=== PATIENT | male | born 1940 | race Caucasian/White ===

== ENCOUNTER 2017-12-04 11:43 | Day surgery (SDC) | payer MEDICARE ==
[~2017-12-04] VITALS: Ht 177.8 cm; Wt 94.9 kg
[~2017-12-04 11:43] MED LIST: AMLO10TA2 PO; ASPI-496 PO; ATOR40TA78 PO; CARV6.252 PO; CLOP75TA PO; FOLI-17 PO; PANT40TA5 PO; THIA100T10 PO; VALS320T2 PO
[2017-12-04 12:40] VITALS: BP 179/79
[2017-12-04] MEDS ORDERED: SODIUM CHLORIDE 0.9% 1,000 ML IV SCH (13:00)
== END 2017-12-04 15:00 ==
LOC: OUT 11:43
PROVIDERS: ATTEND Physician Assistant Surgical
DX: M51.16 Intervertebral disc disorders with radiculopathy, lumbar region (principal); M48.061 Spinal stenosis, lumbar region without neurogenic claudication; M43.16 Spondylolisthesis, lumbar region
CPT/HCPCS: 62284; 72110; 72132; J7030; Q9965

== ENCOUNTER → 2018-03-03 | Outpatient (CLI) | payer MEDICARE | END | disposition home or self-care (01) | LOC: CVU 11:44 | PROVIDERS: ATTEND Internal Medicine Cardiovascular Disease | DX: I08.0 Rheumatic disorders of both mitral and aortic valves (principal); E78.5 Hyperlipidemia, unspecified; I11.0 Hypertensive heart disease with heart failure; I50.9 Heart failure, unspecified; I25.10 Atherosclerotic heart disease of native coronary artery without angina pectoris; Z87.891 Personal history of nicotine dependence; Z95.0 Presence of cardiac pacemaker; Z95.1 Presence of aortocoronary bypass graft | CPT/HCPCS: 0399T; 93306 ==

== ENCOUNTER 2018-03-17 11:57 | Day surgery (SDC) | payer MEDICARE ==
[~2018-03-17] VITALS: Ht 177.8 cm; Wt 94.5 kg
[~2018-03-17 11:57] MED LIST changes: +LORA10TA62 PO; +RANI300C PO; +SACU1TAB4 PO; +VIT C; +VIT D; +VIT E
[2018-03-17] MEDS ORDERED: SODIUM CHLORIDE 0.9% 1,000 ML IV ONE (13:01)
[2018-03-17 13:11] VITALS: BP 144/74
[2018-03-17] MEDS ORDERED: THIA500T PO (13:19)
[2018-03-17] MEDS ORDERED: ASCO10004 PO (13:21)
[2018-03-17] MEDS ORDERED: NIAC500T85 PO (13:21)
[2018-03-17] MEDS ORDERED: CHOL500045 PO (13:21)
[2018-03-17] MEDS ORDERED: VITA400C9 PO (13:22)
[2018-03-17] MEDS ORDERED: DIPHENHYDRAMINE 50 MG/ML, 1ML IVPush ONE (13:30)
[2018-03-17] MEDS ORDERED: MIDAZOLAM 1 MG/ML, 5ML ONE (13:46)
[2018-03-17] MEDS ORDERED: BIVALIRUDIN 250 MG ONE (13:46)
[2018-03-17] MEDS ORDERED: VERAPAMIL 2.5 MG/ML, 2ML ONE (13:46)
[2018-03-17] MEDS ORDERED: FENTANYL PF 100 MCG/2ML ONE (13:46)
[2018-03-17] MEDS ORDERED: HEPARIN 1,000 UNITS/ML, 10ML ONE (13:46)
[2018-03-17] MEDS ORDERED: TICAGRELOR 90 MG TABLET ONE ×2 (13:46→13:48)
[2018-03-17] MEDS ORDERED: LIDOCAINE 2%, 2ML ONE (13:48)
[2018-03-17] MEDS ORDERED: LIDOCAINE/PF 1%, 30ML ONE (14:00)
[2018-03-17] MEDS ORDERED: SODIUM CHLORIDE 0.9% 1,000 ML IV SCH (15:02)
== END 2018-03-17 21:12 | disposition home or self-care (01) ==
LOC: CACL 11:57 → 5SO 17:29 → CACL 21:12
PROVIDERS: ATTEND Internal Medicine Cardiovascular Disease
DX: I25.10 Atherosclerotic heart disease of native coronary artery without angina pectoris (principal); I25.82 Chronic total occlusion of coronary artery; I11.0 Hypertensive heart disease with heart failure; I50.9 Heart failure, unspecified; F10.10 Alcohol abuse, uncomplicated; E78.2 Mixed hyperlipidemia; Z79.82 Long term (current) use of aspirin; Z79.899 Other long term (current) drug therapy; Z79.02 Long term (current) use of antithrombotics/antiplatelets; Z85.46 Personal history of malignant neoplasm of prostate; Z87.891 Personal history of nicotine dependence; Z95.1 Presence of aortocoronary bypass graft; Z95.5 Presence of coronary angioplasty implant and graft; Z95.4 Presence of other heart-valve replacement; Z82.49 Family history of ischemic heart disease and other diseases of the circulatory system
CPT/HCPCS: 75625; 93457; 99156; 99157; C1760; C1769; C1894; J2250; J3010; J3490; Q9967; J0583; J1644

== ENCOUNTER → 2018-04-13 | Outpatient (CLI) | payer MEDICARE ==
[~2018-04-13] MED LIST changes: +ASCO10004 PO; +CHOL500045 PO; +NIAC500T85 PO; +THIA500T PO; +VITA400C9 PO
== END | disposition home or self-care (01) ==
LOC: RAD 10:31
PROVIDERS: ATTEND Internal Medicine Cardiovascular Disease
DX: I77.810 Thoracic aortic ectasia (principal); J84.10 Pulmonary fibrosis, unspecified; R91.8 Other nonspecific abnormal finding of lung field; K57.30 Diverticulosis of large intestine without perforation or abscess without bleeding; I70.8 Atherosclerosis of other arteries; I65.23 Occlusion and stenosis of bilateral carotid arteries
CPT/HCPCS: 71275; 74174; 93880; 94060; 94726; 94729

== ENCOUNTER → 2018-06-22 | Outpatient (CLI) | payer MEDICARE ==
[~2018-06-22] MED LIST changes: -AMLO10TA2 PO; +AMLO10TA6 PO
== END | disposition home or self-care (01) ==
LOC: CVU 08:25
PROVIDERS: ATTEND Internal Medicine Cardiovascular Disease
DX: I34.0 Nonrheumatic mitral (valve) insufficiency (principal); I25.810 Atherosclerosis of coronary artery bypass graft(s) without angina pectoris; I10 Essential (primary) hypertension; E78.5 Hyperlipidemia, unspecified; Z87.891 Personal history of nicotine dependence; Z86.79 Personal history of other diseases of the circulatory system
CPT/HCPCS: 0399T; 93306

== ENCOUNTER 2018-11-21 08:36 | Inpatient (IN) | payer MEDICARE ==
[~2018-11-21] VITALS: Ht 177.8 cm; Wt 97.0 kg
[~2018-11-21 08:36] MED LIST changes: -AMLO10TA6 PO; +AMLO10TA8 PO
--- NOTE | 2018-11-21 08:55 | NUR ---
3 days diffuse upper CP radiating into throat/jaw. Took ntg x3 w/ relief [employer]. Currently denies any CP or SOB. Pt has pacemaker 2010 & aortic valve replacement 2016. EKG done upon arrival, cardiac, NIBP & SPO2 monitors in place. Pt alert, [facility].
[2018-11-21] MEDS ORDERED: SODIUM CHLORIDE FLUSH 10ML SYR IVF ONE (09:30)
[2018-11-21 09:53] LABS: BASOPHILS # (AUTO) 0.03 x10^3/uL (0-0.1); BASOPHILS % (AUTO) 1 % (0-1); EOSINOPHILS # (AUTO) 0.11 x10^3/uL (0-0.4); EOSINOPHILS % (AUTO) 2 % (1-7); LYMPHOCYTES # (AUTO) 1.42 x10^3/uL (1-3.4); LYMPHOCYTES % (AUTO) 25 % (22-44); MD NO; MEAN CORPUSCULAR HEMOGLOBIN 32.6 pg (27.5-34.5); MEAN CORPUSCULAR HGB CONC 34.4 g/dL (33.2-36.2); MEAN CORPUSCULAR VOLUME 94.8 fL (81-97); MEAN PLATELET VOLUME 8.2 fL (7.4-10.4); MONOCYTES % (AUTO) 19 % (2-9); NEUTROPHILS # (AUTO) 3.03 x10^3/uL (1.8-6.8); NEUTROPHILS % (AUTO) 53 % (42-75); PLATELET COUNT 155 x10^3/uL (130-400); RED BLOOD COUNT 4.57 x10^6/uL (4.38-5.82); RED CELL DISTRIBUTION WIDTH 13.1 % (9.4-14.8)
--- NOTE | 2018-11-21 10:03 | NUR ---
report from sandra serrato. pt resting in room watching tv. no needs at this time. connected to all montiors. vss. call light within reach. awaiting lab results.
[2018-11-21 10:06] LABS: ALANINE AMINOTRANSFERASE 26 U/L (12-78); ANION GAP 7 mmol/L (5-15); CHLORIDE 101 mmol/L (98-107); CREATININE 0.93 mg/dL (0.7-1.3)
[2018-11-21 10:10] LABS: ALKALINE PHOSPHATASE 71 U/L (45-117); BILIRUBIN,TOTAL 1.2 mg/dL (0.2-1.0); TOTAL PROTEIN 7.2 g/dL (6.4-8.2)
[2018-11-21 10:17] LABS: TROPONIN I 0.412 ng/mL (0.000-0.045)
[2018-11-21] MEDS ORDERED: SODIUM CHLORIDE FLUSH 10ML SYR IVF PRN (11:00)
--- NOTE | 2018-11-21 11:05 | NUR ---
pt up to rr with steady gait. awaiting room assignment at this time. no other needs. vss. call light within reach.
[2018-11-21] MEDS ORDERED: HEPARIN 5,000 UNITS/ML, 1ML IV ONE ×2 (12:00→13:00)
[2018-11-21] MEDS ORDERED: HEPARIN 25,000 UNITS/500ML PMX 500 ML IV PRN (12:00)
[2018-11-21] MEDS ORDERED: HEPARIN 5,000 UNITS/ML, 1ML IV PRN (12:00)
[2018-11-21 12:25] VITALS: BP 132/76
[2018-11-21] MEDS ORDERED: LABETALOL 5MG/ML, 20ML IVPush PRN (12:30)
[2018-11-21] MEDS ORDERED: ACETAMINOPHEN 325 MG TABLET PO PRN (12:30)
[2018-11-21] MEDS ORDERED: morphine SULFATE 10 MG/ML, 1ML IVPush PRN (12:30)
[2018-11-21] MEDS ORDERED: NITROGLYCERIN 0.4 MG BOTTLE (25 TABS) SL PRN (12:30)
[2018-11-21] MEDS: ATORVASTATIN 40 MG TABLET PO SCH (12:30)
[2018-11-21] MEDS ORDERED: ASPIRIN 81 MG TABLET CHEW PO SCH (12:30)
[2018-11-21 12:51] VITALS: BP 132/76
[2018-11-21 13:15] LABS: INTERNATIONAL NORMALIZED RATIO 1.03 (0.93-1.1); PROTHROMBIN TIME 10.8 Seconds (9.6-11.5)
[2018-11-21] MEDS: HEPARIN 25,000 UNITS/500ML PMX 500 ML IV PRN (13:55)
[2018-11-21 15:30] LABS: TROPONIN I 0.425 ng/mL (0.000-0.045)
[2018-11-21] MEDS: NITROGLYCERIN 0.1 MG/HR PATCH TD SCH (16:07)
[2018-11-21 19:45] VITALS: BP 138/69
[2018-11-21 20:37] LABS: TROPONIN I 0.464 ng/mL (0.000-0.045)
[2018-11-21] MEDS: PANTOPROZOLE 40MG TABLET PO SCH (20:49)
[2018-11-21] MEDS: HEPARIN 5,000 UNITS/ML, 1ML IV PRN (20:50)
[2018-11-21] MEDS: CARVEDILOL 25 MG TABLET PO SCH (20:50)
[2018-11-22 02:00] VITALS: BP 117/66
[2018-11-22 02:53] LABS: BASOPHILS # (AUTO) 0.03 x10^3/uL (0-0.1); BASOPHILS % (AUTO) 0 % (0-1); EOSINOPHILS # (AUTO) 0.17 x10^3/uL (0-0.4); EOSINOPHILS % (AUTO) 3 % (1-7); LYMPHOCYTES # (AUTO) 1.98 x10^3/uL (1-3.4); LYMPHOCYTES % (AUTO) 28 % (22-44); MD NO; MEAN CORPUSCULAR HEMOGLOBIN 32.4 pg (27.5-34.5); MEAN CORPUSCULAR HGB CONC 34.2 g/dL (33.2-36.2); MEAN CORPUSCULAR VOLUME 94.8 fL (81-97); MEAN PLATELET VOLUME 7.8 fL (7.4-10.4); MONOCYTES # (AUTO) 1.37 x10^3/uL (0.2-0.8); MONOCYTES % (AUTO) 20 % (2-9); NEUTROPHILS # (AUTO) 3.44 x10^3/uL (1.8-6.8); NEUTROPHILS % (AUTO) 49 % (42-75); PLATELET COUNT 148 x10^3/uL (130-400); RED BLOOD COUNT 4.42 x10^6/uL (4.38-5.82); RED CELL DISTRIBUTION WIDTH 13.6 % (9.4-14.8)
[2018-11-22 02:59] LABS: ALBUMIN 3.9 g/dL (3.4-5.0); ANION GAP 7 mmol/L (5-15); CALCIUM 8.7 mg/dL (8.5-10.1); CHLORIDE 104 mmol/L (98-107)
[2018-11-22 03:04] LABS: ALANINE AMINOTRANSFERASE 26 U/L (12-78); CREATININE 0.97 mg/dL (0.7-1.3); TOTAL PROTEIN 6.7 g/dL (6.4-8.2); TROPONIN I 0.423 ng/mL (0.000-0.045)
[2018-11-22 03:05] LABS: ALKALINE PHOSPHATASE 65 U/L (45-117)
[2018-11-22] MEDS: HEPARIN 5,000 UNITS/ML, 1ML IV PRN (04:20)
[2018-11-22] MEDS ORDERED: ASPIRIN 325 MG TABLET EC PO SCH (06:00)
[2018-11-22 07:17] VITALS: BP 128/68
[2018-11-22] MEDS: FAMOTIDINE 20 MG TABLET PO SCH (09:29)
[2018-11-22] MEDS: FOLIC ACID 1 MG TABLET PO SCH (09:29)
[2018-11-22] MEDS: ASCORBIC ACID 500 MG TABLET PO SCH (09:29)
[2018-11-22] MEDS: NIACIN 500 MG TABLET.ER PO SCH (09:30)
[2018-11-22] MEDS: PANTOPROZOLE 40MG TABLET PO SCH ×2 (09:30→20:43)
[2018-11-22] MEDS: CLOPIDOGREL 75 MG TABLET PO SCH (09:30)
[2018-11-22] MEDS: CHOLECALCIFEROL 5,000u TAB PO SCH (09:30)
[2018-11-22] MEDS: AMLODIPINE 10 MG TAB PO SCH (09:30)
[2018-11-22] MEDS: CARVEDILOL 25 MG TABLET PO SCH ×2 (09:30→20:43)
[2018-11-22] MEDS ORDERED: SODIUM CHLORIDE 0.9% 1,000 ML IV SCH (11:00)
[2018-11-22 12:53] VITALS: BP 136/72
[2018-11-22] MEDS: HEPARIN 25,000 UNITS/500ML PMX 500 ML IV PRN (14:26)
[2018-11-22] MEDS ORDERED: MIDAZOLAM 1 MG/ML, 2ML ONE (15:20)
[2018-11-22] MEDS ORDERED: BIVALIRUDIN 250 MG ONE (15:21)
[2018-11-22] MEDS ORDERED: FENTANYL PF 100 MCG/2ML ONE (15:21)
[2018-11-22] MEDS ORDERED: LIDOCAINE 1%, 20ML ONE (15:21)
[2018-11-22] MEDS: NITROGLYCERIN 0.1 MG/HR PATCH TD SCH (16:21)
[2018-11-22] MEDS: SODIUM CHLORIDE 0.9% 1,000 ML IV SCH (17:32)
[2018-11-22 19:31] VITALS: BP 112/61
[2018-11-22] MEDS: ATORVASTATIN 40 MG TABLET PO SCH (20:43)
[2018-11-23 00:57] VITALS: BP 126/58
[2018-11-23] MEDS: SODIUM CHLORIDE 0.9% 1,000 ML IV SCH ×2 (01:16→09:22)
[2018-11-23 05:01] LABS: ANION GAP 5 mmol/L (5-15); CALCIUM 8.4 mg/dL (8.5-10.1); CHLORIDE 108 mmol/L (98-107); CREATININE 0.95 mg/dL (0.7-1.3)
[2018-11-23 05:02] LABS: CHOLESTEROL, TOTAL 118 mg/dL (140-239); TRIGLYCERIDES 99 mg/dL (50-200); VLDL CHOLESTEROL 20 mg/dL (0-25)
[2018-11-23 05:03] LABS: CHOL/HDL RATIO 3.4; HDL CHOL % 30 % (26-37); HDL CHOLESTEROL (DIRECT) 35 mg/dL (40-60); LDL CHOLESTEROL,CALCULATED 63 mg/dL (54-169); LDL/HDL RATIO 1.8 (0.5-3.0)
[2018-11-23 05:11] LABS: HEMOGLOBIN A1C 5.4 % (4.2-6.3)
[2018-11-23 07:19] VITALS: BP 136/65
[2018-11-23] MEDS ORDERED: CLOPIDOGREL 75 MG TABLET PO SCH (09:00)
[2018-11-23] MEDS ORDERED: ASPIRIN 81 MG TABLET EC PO SCH (09:00)
[2018-11-23] MEDS: CHOLECALCIFEROL 5,000u TAB PO SCH (09:20)
[2018-11-23] MEDS: ASCORBIC ACID 500 MG TABLET PO SCH (09:20)
[2018-11-23] MEDS: PANTOPROZOLE 40MG TABLET PO SCH (09:21)
[2018-11-23] MEDS: CLOPIDOGREL 75 MG TABLET PO SCH (09:21)
[2018-11-23] MEDS: AMLODIPINE 10 MG TAB PO SCH (09:21)
[2018-11-23] MEDS: NIACIN 500 MG TABLET.ER PO SCH (09:21)
[2018-11-23] MEDS: FOLIC ACID 1 MG TABLET PO SCH (09:22)
[2018-11-23] MEDS: CARVEDILOL 25 MG TABLET PO SCH (09:22)
[2018-11-23] MEDS ORDERED: NITR0.4T SL (09:22)
[2018-11-23] MEDS: FAMOTIDINE 20 MG TABLET PO SCH (09:25)
== END 2018-11-23 11:00 | disposition home or self-care (01) | DRG 246 ==
LOC: ED 09:32 → 5SO 10:45 → ED 12:28 → DCLOUNGE 11-23 10:53
PROVIDERS: ADMIT Hospitalist; ATTEND Hospitalist
PROC: 027135Z Dilation of Coronary Artery, Two Arteries with Two Drug-eluting Intraluminal Devices, Percutaneous Approach (ICD-10-PCS; principal; 2018-11-22)
PROC: 4A023N7 Measurement of Cardiac Sampling and Pressure, Left Heart, Percutaneous Approach (ICD-10-PCS; 2018-11-22)
PROC: B2111ZZ Fluoroscopy of Multiple Coronary Arteries using Low Osmolar Contrast (ICD-10-PCS; 2018-11-22)
DX: T82.858A Stenosis of other vascular prosthetic devices, implants and grafts, initial encounter (principal); I21.4 Non-ST elevation (NSTEMI) myocardial infarction; I50.33 Acute on chronic diastolic (congestive) heart failure; E87.1 Hypo-osmolality and hyponatremia; I25.110 Atherosclerotic heart disease of native coronary artery with unstable angina pectoris; Y83.2 Surgical operation with anastomosis, bypass or graft as the cause of abnormal reaction of the patient, or of later complication, without mention of misadventure at the time of the procedure; Y92.89 Other specified places as the place of occurrence of the external cause; E78.5 Hyperlipidemia, unspecified; I25.5 Ischemic cardiomyopathy; I11.0 Hypertensive heart disease with heart failure; G62.9 Polyneuropathy, unspecified; I08.0 Rheumatic disorders of both mitral and aortic valves; R73.9 Hyperglycemia, unspecified; I45.9 Conduction disorder, unspecified; I73.9 Peripheral vascular disease, unspecified; Z82.49 Family history of ischemic heart disease and other diseases of the circulatory system; Z87.891 Personal history of nicotine dependence; Z95.0 Presence of cardiac pacemaker; Z95.1 Presence of aortocoronary bypass graft; Z95.2 Presence of prosthetic heart valve; Z95.5 Presence of coronary angioplasty implant and graft
CPT/HCPCS: 36415; 71045; 80048; 80053; 80061; 83036; 83690; 83880; 84484; 85014; 85018; 85025; 85520; 85610; 85730; 93005; 93306; 93455; 99156; 99157; 99285; C1760; C1769; C1894; C9604; G0378; J0583; J1644; J2250; J3010; J3490; C1725; C1874; C1887; J7030; Q9967

== ENCOUNTER 2020-10-02 06:03 | Day surgery (SDC) | payer MEDICARE ==
[~2020-10-02] VITALS: Ht 177.8 cm; Wt 99.0 kg
[~2020-10-02 06:03] MED LIST changes: +AMLO-211 PO; -AMLO10TA8 PO; +ASCO100018 PO; -ASCO10004 PO; +LORA-59 PO; -LORA10TA62 PO; +NITR0.4T41 SL; -PANT40TA5 PO; +PANT40TA6 PO; +VITA-73 PO; -VITA400C9 PO
[2020-10-02] MEDS ORDERED: SODIUM CHLORIDE 0.9% 1,000 ML IV SCH (07:00)
[2020-10-02 07:01] VITALS: BP 143/91
[2020-10-02] MEDS ORDERED: OMNIPAQUE 180 MG/ML, 10ML VIAL ONE (09:05)
== END 2020-10-02 13:00 | disposition home or self-care (01) ==
LOC: OUT 06:03
PROVIDERS: ATTEND Registered Nurse Registered Nurse First Assistant
DX: M48.061 Spinal stenosis, lumbar region without neurogenic claudication (principal); M54.16 Radiculopathy, lumbar region; M25.78 Osteophyte, vertebrae; I10 Essential (primary) hypertension; I48.91 Unspecified atrial fibrillation; M10.9 Gout, unspecified; Z79.01 Long term (current) use of anticoagulants; Z79.02 Long term (current) use of antithrombotics/antiplatelets; Z79.899 Other long term (current) drug therapy; Z87.891 Personal history of nicotine dependence; Z95.0 Presence of cardiac pacemaker; Z82.61 Family history of arthritis; Z82.49 Family history of ischemic heart disease and other diseases of the circulatory system; Z80.6 Family history of leukemia
CPT/HCPCS: 62284; 72110; 72132; J7030; Q9965

== ENCOUNTER → 2021-03-21 | Outpatient (CLI) | payer MEDICARE ==
[~2021-03-21] MED LIST changes: -FOLI-17 PO; +FOLI1TAB32 PO; +REGADENOSON 0.4 MG/5 ML SYRINGE ONE; +VITA-66 PO; -VITA-73 PO
== END | disposition home or self-care (01) ==
LOC: CVU 06:37
PROVIDERS: ATTEND Internal Medicine Cardiovascular Disease
DX: I11.9 Hypertensive heart disease without heart failure (principal); I25.10 Atherosclerotic heart disease of native coronary artery without angina pectoris; E78.5 Hyperlipidemia, unspecified; Z95.2 Presence of prosthetic heart valve; Z95.1 Presence of aortocoronary bypass graft
CPT/HCPCS: 78452; 93017; 93306; A9502; J2785